=== PATIENT | male | born 2005 | race Caucasian/White ===

== ENCOUNTER 2024-09-29 21:50 | Emergency (ER) | payer SELFPAY ==
[2024-09-29 21:52] VITALS: BP 104/64
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
[2024-09-30 01:07] VITALS: BMI 23.7
== END 2024-09-30 01:13 | disposition home or self-care (01) ==
LOC: EMR 21:50
PROVIDERS: EMERGENCY PHYSICIAN Student in an Organized Health Care Education/Training Program
DX: Z04.1 Encounter for examination and observation following transport accident (principal)
CPT/HCPCS: 99282